=== PATIENT | male | born 1985 | race Native Hawaiian/Other Pacific Islander ===

== ENCOUNTER 2016-11-02 15:13 | Outpatient (CLI) | payer OTHER ==
[2016-11-02 15:33] LABS: PLATELET COUNT 240 K/uL (142-355)
[2016-11-02 16:03] LABS: POTASSIUM 4.8 mmol/L (3.6-5.2); SODIUM 139 mmol/L (136-145)
== END 2016-11-02 19:07 | disposition home or self-care (01) ==
LOC: LAB 15:13
PROVIDERS: Student in an Organized Health Care Education/Training Program
DX: R53.83 Other fatigue (principal); R42 Dizziness and giddiness; E78.00 Pure hypercholesterolemia, unspecified
CPT/HCPCS: 80053; 80061; 83036; 84439; 84443; 85027

== ENCOUNTER 2020-06-23 13:23 | Outpatient (CLI) | payer OTHER | END 2020-06-23 19:43 | disposition home or self-care (01) | LOC: RESP 13:23 | PROVIDERS: ATTEND Physician Assistant | DX: R53.83 Other fatigue (principal) ==

== ENCOUNTER 2023-01-05 16:21 | Outpatient (CLI) | payer OTHER | END 2023-01-05 19:32 | disposition home or self-care (01) | LOC: RAD 16:21 | PROVIDERS: ATTEND Nurse Practitioner Family | DX: R06.09 Other forms of dyspnea (principal); R53.83 Other fatigue ==

== ENCOUNTER 2023-01-06 12:10 | Outpatient (CLI) | payer OTHER | END 2023-01-06 19:10 | disposition home or self-care (01) | LOC: RESP 12:10 | PROVIDERS: ATTEND Nurse Practitioner Family | DX: R06.09 Other forms of dyspnea (principal); R53.83 Other fatigue | CPT/HCPCS: 93005 ==